=== PATIENT | female | born 1985 | race Caucasian/White ===

== ENCOUNTER 2022-08-19 09:30 | Outpatient (CLI) | payer OTHER, SELFPAY | END 2022-08-19 09:31 | disposition home or self-care (01) | LOC: LKVREF 09:31 | PROVIDERS: PCP Family Medicine; Visit Provider Family Medicine | DX: E66.9 Obesity, unspecified (principal); I10 Essential (primary) hypertension | CPT/HCPCS: 84443 ==

== ENCOUNTER 2023-06-20 09:31 | Outpatient (CLI) | payer OTHER, SELFPAY | END 2023-06-20 09:32 | disposition home or self-care (01) | LOC: NFLDREF 06-21 08:02 | PROVIDERS: PCP Family Medicine; Referring Provider Family Medicine; Visit Provider Family Medicine | DX: Z00.00 Encounter for general adult medical examination without abnormal findings (principal); I10 Essential (primary) hypertension; E66.9 Obesity, unspecified; Z13.6 Encounter for screening for cardiovascular disorders | CPT/HCPCS: 80048; 80061 ==

== ENCOUNTER 2023-07-05 10:02 | Outpatient (CLI) | payer OTHER, SELFPAY ==
--- NOTE | 2023-07-05 10:15 | CRLHL7_ITS ---
For Patients: As a result of the Century Cures Act, medical imaging exams and procedure reports are released immediately into your electronic medical record. You may view this report before your referring provider. If you have questions, please contact your health care provider. INDICATION: Low back pain. COMPARISON: Radiograph 06/22/2023. Technique Sagittal T1, T2, and STIR sequences. Axial T1 and T2 weighted sequences. FINDINGS: Normal vertebral body alignment. No fractures. No vertebral body loss of height. No spondylolisthesis. No ligamentous injury. Normal marrow signal. No suspicious osseous lesions. No conus terminates at L1. [id number] L1-2: No spinal canal neural foraminal narrowing. L2-3: Annular bulge. Flattening of ventral thecal sac and mild narrowing of spinal canal. No neural foraminal narrowing. L3-4: Annular bulge. Mild narrowing of spinal canal. No neural foraminal narrowing. L4-5: Annular bulge. No narrowing of spinal canal. Mild narrowing of the left neural foramen. No narrowing of the right neural foramen. L5-S1: No narrowing of spinal canal. No impingement of the traversing S1 nerve roots. Mild narrowing of the bilateral foramina. Normal visualized SI joints. Normal paraspinal soft tissues. IMPRESSION: 1. Normal alignment. No fractures. 2. At L2-3, moderate spinal canal 3. At L3-4, mild narrowing of the spinal canal 4. At L4-5, mild narrowing of the left neuroforamen. 5. At L5-S1, mild narrowing of the bilateral neural foramina Dictated by Dallin Lora MD @ 07/05/2023 12:19:42 PM (Electronically Signed)
== END 2023-07-05 10:03 | disposition home or self-care (01) ==
LOC: MRI 10:03
PROVIDERS: PCP Family Medicine; Visit Provider Family Medicine
DX: M54.50 Low back pain, unspecified (principal); M51.26 Other intervertebral disc displacement, lumbar region
CPT/HCPCS: 72148

== ENCOUNTER 2025-02-07 17:21 | Outpatient (CLI) | payer MEDICAID, SELFPAY ==
[2025-02-12 10:36] LABS: Pap Test Digital Imaging Done
== END 2025-02-07 17:22 | disposition home or self-care (01) ==
LOC: LKVREF 17:22
PROVIDERS: PCP Family Medicine; Visit Provider Family Medicine
DX: I10 Essential (primary) hypertension (principal); E66.9 Obesity, unspecified; R53.83 Other fatigue
CPT/HCPCS: 84443; 88141; 88142; 88175